=== PATIENT | female | born 1970 | race Caucasian/White ===

== ENCOUNTER → 2018-05-05 | Outpatient (CLI) | payer OTHER ==
[~2018-05-05] MED LIST: ASPIRIN EC325 MG PO; AUGMENTIN 875875 MG PO; BUTALB-APAP-CA1 EACH PO; CELEBREX 200 M200 M1 PO; CEPHALEXIN 500500 M3 PO; CHANTIX1 MG PO; COLACE100 MG PO; CYCLOBENZAPRINE10 MG PO; DESVENLAFAXINE50 M2 PO; DICLOFENAC SOD50 M1 PO; ETODOLAC 300 M300 MG PO; GABAPENTIN600 M1 PO; HYDROCODON-ACE1 EAC5 PO; HYDROCODONE-AP1 EACH PO; IBUPROFEN 800800 M1 PO; LEXAPRO20 MG PO; LIDODERM 5%1 PATCH TOP; LYRICA 75 MG CA75 MG PO; LYRICA150 MG PO; MEDROLDOSEPACK PO; MOBIC15 MG PO; MOBIC7.5 MG PO; NABUMETONE 500500 M1 PO; NABUMETONE 500500 M2 PO; NOHOMEMEDICATIONS; NORCO 10-325 T1 EACH PO; NORCO 5-325 TA1 EACH PO; NUVIGIL250 MG PO; OXYCODONE HCL 55 MG PO; PREDNISONE 10 M10 MG PO; PRISTIQ50 MG PO; PROAIR HFA8.5 GM INH; SEROQUEL 50 MG50 M1 NG; TESSALON PERLE100 MG PO; XANAX 0.5 MG0.5 MG PO; XANAX XR0.5 MG PO; XANAX XR1 MG PO; XARELTO10 MG PO; ZANAFLEX4 MG PO; ZOFRAN4 MG PO; ZPAK PO; pregabalin PO
== END ==
LOC: M.MRI 07:54
DX: G43.119 Migraine with aura, intractable, without status migrainosus (principal); G47.26 Circadian rhythm sleep disorder, shift work type; F32.0 Major depressive disorder, single episode, mild; F32.4 Major depressive disorder, single episode, in partial remission; F41.1 Generalized anxiety disorder; F41.3 Other mixed anxiety disorders; F17.210 Nicotine dependence, cigarettes, uncomplicated; Z85.89 Personal history of malignant neoplasm of other organs and systems; Z85.840 Personal history of malignant neoplasm of eye